=== PATIENT | female | born 2000 | race Caucasian/White ===

== ENCOUNTER 2023-02-28 08:48 | Emergency (ER) | payer SELFPAY ==
[~2023-02-28] VITALS: Ht 157.4 cm; Wt 61.2 kg
[2023-02-28 09:25] LABS: HEMATOCRIT 31.4 % (37.0-47.0); MEAN CELL VOLUME 82.4 fl (81.0-99.0); MEAN CORPUSCULAR HGB 26.5 pg (27.0-31.0); MEAN CORPUSCULAR HGB CONC 32.2 g/dl (33.0-37.0); PLATELET COUNT AUTOMATED 281 10*3/uL (130-400); RED BLOOD COUNT 3.81 10*6/uL (4.10-5.10); RED CELL DISTRI WIDTH 14.2 % (0-14.5); WHITE BLOOD COUNT 18.9 10*3/uL (4.8-10.8)
[2023-02-28 09:27] LABS: MANUAL DIFF REFLEX YES
[2023-02-28 09:45] LABS: PLATELET SUFFICIENCY NORMAL (NORMAL); TOTAL CELLS COUNTED 100 #CELLS
[2023-02-28 09:47] LABS: ALKALINE PHOSPHATASE 145 U/L (46-116); CHLORIDE 107 mmol/L (98-107); POTASSIUM 4.2 mmol/L (3.4-5.1); TOTAL PROTEIN 6.3 gm/dL (6.0-8.0)
[2023-02-28 09:48] LABS: BUN < 5 mg/dl (9-23); SGPT/ALT < 7 U/L (5-49)
== END 2023-02-28 10:05 | disposition short-term general hospital (02) ==
LOC: ED 08:48
PROVIDERS: Emergency Medicine
DX: O80 Encounter for full-term uncomplicated delivery (principal); R10.2 Pelvic and perineal pain; Z3A.00 Weeks of gestation of pregnancy not specified